=== PATIENT | female | born 1990 | race American Indian/Alaskan Native ===

== ENCOUNTER 2019-02-14 07:44 | Emergency (ER) | payer OTHER ==
[2019-02-14 07:56] VITALS: BP 125/76
--- NOTE | 2019-02-14 08:11 | Emergency Department Report ---
ED Rash HPI - HPI Chief Complaint: Skin/Abscess/Foreign Body Stated Complaint: BITE CARBONE ON LFT UPPER THIGH/BACK Time Seen by Provider: 02/14/19 07:59 Duration: 1 Day Location: Lower Extremities Suspected Cause: Insect Rash Symptoms: Yes Itching, No Facial Swelling, No Tongue/Oral Swelling, No Breathing Difficulties, No Choking Sensation, No Wheezing/Dyspnea, No Peeling, No Blistering, No Fever, No Lightheaded, No Malaise, No Myalgias Severity: mild Other History: Patient is a 28-year-old comes to the ER with a insect bite on her left [place]. She is requesting a work note because it hurt so much. ED Review of Systems ROS: Stated complaint: BITE CARBONE ON LFT UPPER THIGH/BACK Other details as noted in HPI Comment: All other systems reviewed and negative ED Past Medical Hx - Past Medical History Previous Medical History?: No - Surgical History Past Surgical History?: No - Social History Smoking Status: Never Smoker Substance Use Type: None - Medications Home Medications: Home Medications Medication Instructions Recorded Confirmed Last Taken Type Acetaminophen/Codeine [Tylenol 1 tab PO Q6H PRN #12 tab 08/26/18 Unknown Rx /Codeine # 3 tab] Sulfamethoxazole/Trimethoprim 1 each PO BID #14 tablet 08/26/18 Unknown Rx [Bactrim DS TAB] Rash Exam - Exam General: Vital signs noted. No distress. Alert and acting appropriately. Patient is awake alert and oriented to person place and time. Pupils equal round react to light. EOMs intact. No focal neuro deficit. S1-S2. No murmur bruit or rub. No JVD. No peripheral edema. Lungs are clear to auscultation anterior and posterior. Abdomen soft and nontender. No pain with palpation or on rebound. No CVA tenderness. Full range of motion of all extremities. Mood and affect appropriate. insect bite left glut no abscess no cellulitis ED Course Vital Signs 02/14/19 07:55 Temperature 98.4 F Pulse Rate 76 Respiratory 16 Rate Blood Pressure 125/76 O2 Sat by Pulse 100 Oximetry ED Medical Decision Making - Medical Decision Making simple bite wanting work note Vital Signs 02/14/19 07:55 Temperature 98.4 F Pulse Rate 76 Respiratory 16 Rate Blood Pressure 125/76 O2 Sat by Pulse 100 Oximetry Critical care attestation.: If time is entered above; I have spent that time in minutes in the direct care of this critically ill patient, excluding procedure time. ED Disposition Clinical Impression: Insect bite Disposition: DC-01 TO HOME OR SELFCARE Is pt being admited?: No Does the pt Need Aspirin: No Condition: Stable Instructions: Insect Bite or Sting (ED) Additional Instructions: motrin or tylenol for pain benadryl and pepcid for symptom relief Referrals: [facility] [Outside] - 3-5 Days Forms: Work/School Release Form(ED) Time of Disposition: 08:07
== END 2019-02-14 08:17 | disposition home or self-care (01) ==
LOC: ED 07:44
DX: S80.862A Insect bite (nonvenomous), left lower leg, initial encounter (principal); W57.XXXA Bitten or stung by nonvenomous insect and other nonvenomous arthropods, initial encounter; Y93.89 Activity, other specified; Y92.89 Other specified places as the place of occurrence of the external cause; Y99.8 Other external cause status
CPT/HCPCS: 99282

== ENCOUNTER 2019-03-07 06:03 | Emergency (ER) | payer OTHER ==
[2019-03-07 06:12] VITALS: BP 130/73
--- NOTE | 2019-03-07 07:58 | Emergency Department Report ---
ED ENT HPI - General Chief complaint: Dental/Oral Stated complaint: TOOTH PAIN Time Seen by Provider: 03/07/19 07:53 Source: patient Mode of arrival: Ambulatory Limitations: No Limitations - History of Present Illness Initial comments: 28 y/o female comes in to ER reports tooth pain since 02/04/19 when she saw her dentist he gave her antibiotics and she was to complete treatment. Patient reports that she could not afford to have 2 teeth remove and is here for pain. No PMH, no meds and NKDA. MD complaint: tooth pain Onset/Timin -: month(s) Location: tooth # (17) Severity scale (0 -10): 8 Quality: aching, sharp Consistency: constant Associated Symptoms: toothache. denies: fever, cough, gum swelling, pain with swallowing, sore throat, tinnitus, hearing loss - Related Data Previous Rx's Medication Instructions Recorded Last Taken Type Acetaminophen/Codeine [Tylenol 1 tab PO Q6H PRN #12 tab 08/26/18 Unknown Rx /Codeine # 3 tab] Sulfamethoxazole/Trimethoprim 1 each PO BID #14 tablet 08/26/18 Unknown Rx [Bactrim DS TAB] Ibuprofen [Motrin 600 MG tab] 600 mg PO Q8H PRN #30 tablet 03/07/19 Unknown Rx Allergies Allergy/AdvReac Type Severity Reaction Status Date / Time No Known Allergies Allergy Verified 02/14/19 07:47 ED Dental HPI - General Chief complaint: Dental/Oral Stated complaint: TOOTH PAIN Time Seen by Provider: 03/07/19 07:53 Source: patient Mode of arrival: Ambulatory Limitations: No Limitations - Related Data Previous Rx's Medication Instructions Recorded Last Taken Type Acetaminophen/Codeine [Tylenol 1 tab PO Q6H PRN #12 tab 08/26/18 Unknown Rx /Codeine # 3 tab] Sulfamethoxazole/Trimethoprim 1 each PO BID #14 tablet 08/26/18 Unknown Rx [Bactrim DS TAB] Ibuprofen [Motrin 600 MG tab] 600 mg PO Q8H PRN #30 tablet 03/07/19 Unknown Rx Allergies Allergy/AdvReac Type Severity Reaction Status Date / Time No Known Allergies Allergy Verified 02/14/19 07:47 ED Review of Systems ROS: Stated complaint: TOOTH PAIN Other details as noted in HPI Comment: All other systems reviewed and negative ENT: dental pain ED Past Medical Hx - Past Medical History Previous Medical History?: No - Surgical History Past Surgical History?: No - Social History Smoking Status: Current Every Day Smoker Substance Use Type: None - Medications Home Medications: Home Medications Medication Instructions Recorded Confirmed Last Taken Type Acetaminophen/Codeine [Tylenol 1 tab PO Q6H PRN #12 tab 08/26/18 Unknown Rx /Codeine # 3 tab] Sulfamethoxazole/Trimethoprim 1 each PO BID #14 tablet 08/26/18 Unknown Rx [Bactrim DS TAB] Ibuprofen [Motrin 600 MG tab] 600 mg PO Q8H PRN #30 tablet 03/07/19 Unknown Rx ED Physical Exam - General Limitations: No Limitations General appearance: alert, in no apparent distress - Head Head exam: Present: atraumatic, normocephalic - Eye Eye exam: Present: normal appearance - ENT ENT exam: Present: mucous membranes moist - Expanded ENT Exam Expanded Teeth exam: Absent: dental caries, dental tenderness #, gingival enlargement ED Course Vital Signs 03/07/19 06:06 Temperature 97.9 F Pulse Rate 77 Respiratory 18 Rate Blood Pressure 130/73 O2 Sat by Pulse 100 Oximetry ED Medical Decision Making - Medical Decision Making 28 y/o female with tooth pain for 1 month. Take Ibuprofen and follow up with your dentist. Critical care attestation.: If time is entered above; I have spent that time in minutes in the direct care of this critically ill patient, excluding procedure time. ED Disposition Clinical Impression: Toothache Disposition: DC-01 TO HOME OR SELFCARE Is pt being admited?: No Does the pt Need Aspirin: No Condition: Stable Instructions: Toothache (ED) Additional Instructions: Take Ibuprofen and follow up with your dentist. Prescriptions: Ibuprofen [Motrin 600 MG tab] 600 mg PO Q8H PRN #30 tablet PRN Reason: Pain Referrals: LESTER GILBERT MD [Primary Care Provider] - 3-5 Days
== END 2019-03-07 08:05 | disposition home or self-care (01) ==
LOC: ED 06:03
DX: K08.89 Other specified disorders of teeth and supporting structures (principal); F17.200 Nicotine dependence, unspecified, uncomplicated